=== PATIENT | female | born 1930 | race Caucasian/White ===

== ENCOUNTER 2017-01-31 11:08 | Inpatient (IN) | payer MEDICARE ==
[~2017-01-31] VITALS: Ht 165.1 cm; Wt 60.0 kg
[~2017-01-31 11:08] MED LIST: ANTIVERT25 MG PO; ASPIR-LOW81 MG PO; B121000 MCG/1 IM; CALCIUM 500 + D1 TAB PO; CALCIUM600 MG PO; CIPRO500 MG PO; CLARITIN10 MG PO; COLACE100 MG PO; DAILY VITAMIN1 TAB PO; DARVOCET N 1001 TAB PO; Ecotrin325 MG PO; FISH OIL 10001000 MG PO; LOPRESSOR25 MG PO; LOPRESSOR50 M1 PO; LOPRESSOR50 MG PO; MAREPA1200 MG PO; METOPROLOL SR50 MG PO; MOBIC7.5 MG PO; MOTRIN800 MG PO; MULTI VITAMINS1 TAB PO; MYLICON, MYLANT80 MG PO; NORVASC5 MG PO; PREDNICOT20 MG PO; PRILOSEC20 MG PO; SIMVASTATIN10 MG PO; VITAMIN B PO; VITAMIN D400 I1 PO; XANAX0.25 MG PO; ZOFRAN ODT4 MG SL; [UNRECOGNIZED DRUG - CODE] PO; [UNRECOGNIZED DRUG - CODE] PO; [UNRECOGNIZED DRUG - CODE] PO
[2017-01-31 11:28] VITALS: BP 130/55
[2017-01-31 12:09] LABS: BASO % 0.1 % (0.0-1.0); EOS % 0.4 % (1.0-4.0); HEMATOCRIT 42.2 % (37.0-47.0); HEMOGLOBIN 14.2 g/dl (12.0-16.0); LYMPH # 0.7 10*3/uL (1.3-4.4); LYMPH % 6.9 % (27.0-41.0); MEAN CELL VOLUME 94.4 fl (81.0-99.0); MEAN CORPUSCULAR HGB 31.8 pg (27.0-31.0); MEAN CORPUSCULAR HGB CONC 33.6 g/dl (33.0-37.0); MEAN PLATELET VOLUME 9.5 fl (9.6-12.3); MONO # 0.6 10*3/uL (0.1-1.0); MONO % 5.3 % (3.0-9.0); NEUT # 9.1 10*3/uL (2.3-7.9); PLATELET COUNT AUTOMATED 187 10*3/uL (130-400); RED BLOOD COUNT 4.47 10*6/uL (4.10-5.10); RED CELL DISTRI WIDTH 13.3 % (0-14.5); WHITE BLOOD COUNT 10.4 10*3/uL (4.8-10.8)
[2017-01-31 12:30] LABS: ALBUMIN 3.7 gm/dl (3.1-4.5); ALKALINE PHOSPHATASE 68 U/L (45-117); BUN 22 mg/dl (7-24); CHLORIDE 108 mmol/L (98-107); CREATININE 0.69 mg/dL (0.55-1.02); LIPASE 77 U/L (73-393); SGOT/AST 13 IU/L (3-35); SGPT/ALT 25 U/L (12-78); SODIUM 140 mmol/L (136-145); TOTAL PROTEIN 6.9 gm/dL (6.4-8.2)
[2017-01-31 12:31] LABS: TROPONIN I < 0.015 ng/ml (<0.045)
[2017-01-31 12:50] LABS: BILIRUBIN NEGATIVE (NEGATIVE); BLOOD NEGATIVE (NEGATIVE); CLARITY SL CLOUDY (CLEAR); COLOR YELLOW (YELLOW); GLUCOSE NEGATIVE (NEGATIVE); KETONE 2+ (NEGATIVE); LEUKO ESTERASE NEGATIVE (NEGATIVE); NITRITE NEGATIVE (NEGATIVE); SPECIFIC GRAVITY 1.025 (1.005-1.030)
[2017-01-31 13:00] LABS: BACTERIA 1+; WBC 0-2 wbc/hpf (0-5)
[2017-01-31 13:05] VITALS: BP 120/53
[2017-01-31 15:30] VITALS: BP 127/49
[2017-01-31 20:00] VITALS: BP 122/49
[2017-02-01] VITALS: BP 143/57
[2017-02-01 04:00] VITALS: BP 120/50
[2017-02-01 07:26] LABS: BUN 17 mg/dl (7-24); CHLORIDE 110 mmol/L (98-107); CREATININE 0.56 mg/dL (0.55-1.02); POTASSIUM 3.4 mmol/L (3.5-5.1); SODIUM 143 mmol/L (136-145)
[2017-02-01 07:30] LABS: BASO % 0.2 % (0.0-1.0); EOS % 0.8 % (1.0-4.0); LYMPH # 1.4 10*3/uL (1.3-4.4); LYMPH % 26.7 % (27.0-41.0); MEAN CORPUSCULAR HGB 31.8 pg (27.0-31.0); MEAN CORPUSCULAR HGB CONC 32.6 g/dl (33.0-37.0); MEAN PLATELET VOLUME 9.8 fl (9.6-12.3); MONO # 0.4 10*3/uL (0.1-1.0); MONO % 8.3 % (3.0-9.0); NEUT # 3.2 10*3/uL (2.3-7.9); NEUT % 63.6 % (47.0-73.0); PLATELET COUNT AUTOMATED 165 10*3/uL (130-400); RED BLOOD COUNT 3.65 10*6/uL (4.10-5.10); RED CELL DISTRI WIDTH 13.5 % (0-14.5); WHITE BLOOD COUNT 5.1 10*3/uL (4.8-10.8)
[2017-02-01 07:35] LABS: HEMATOCRIT 35.6 % (37.0-47.0); HEMOGLOBIN 11.6 g/dl (12.0-16.0); MEAN CELL VOLUME 97.5 fl (81.0-99.0)
[2017-02-01 08:00] VITALS: BP 110/50
[2017-02-01 12:00] VITALS: BP 124/52
[2017-02-01 16:00] VITALS: BP 127/55
[2017-02-01 20:00] VITALS: BP 128/61
[2017-02-02] VITALS: BP 149/66
[2017-02-02 06:01] LABS: BASO % 0.2 % (0.0-1.0); EOS # 0.1 10*3/uL (0.0-0.4); EOS % 1.4 % (1.0-4.0); HEMATOCRIT 33.9 % (37.0-47.0); HEMOGLOBIN 11.2 g/dl (12.0-16.0); LYMPH # 1.3 10*3/uL (1.3-4.4); LYMPH % 31.1 % (27.0-41.0); MEAN CELL VOLUME 95.8 fl (81.0-99.0); MEAN CORPUSCULAR HGB 31.6 pg (27.0-31.0); MEAN PLATELET VOLUME 9.5 fl (9.6-12.3); MONO # 0.3 10*3/uL (0.1-1.0); MONO % 6.8 % (3.0-9.0); NEUT # 2.6 10*3/uL (2.3-7.9); NEUT % 60.3 % (47.0-73.0); PLATELET COUNT AUTOMATED 161 10*3/uL (130-400); RED BLOOD COUNT 3.54 10*6/uL (4.10-5.10); RED CELL DISTRI WIDTH 13.2 % (0-14.5); WHITE BLOOD COUNT 4.3 10*3/uL (4.8-10.8)
[2017-02-02 06:22] LABS: BUN 11 mg/dl (7-24); CHLORIDE 110 mmol/L (98-107); CREATININE 0.46 mg/dL (0.55-1.02); POTASSIUM 3.4 mmol/L (3.5-5.1); SODIUM 145 mmol/L (136-145)
[2017-02-02 08:00] VITALS: BP 134/59
[2017-02-02 12:00] VITALS: BP 134/62
[2017-02-02 16:00] VITALS: BP 116/55
[2017-02-02 20:00] VITALS: BP 142/53
[2017-02-03] VITALS: BP 126/64
[2017-02-03 06:41] LABS: BUN 5 mg/dl (7-24); CHLORIDE 112 mmol/L (98-107); CREATININE 0.49 mg/dL (0.55-1.02); PHOSPHOROUS 2.7 mg/dL (2.5-4.9); POTASSIUM 3.2 mmol/L (3.5-5.1); SODIUM 145 mmol/L (136-145)
[2017-02-03 08:00] VITALS: BP 143/53
[2017-02-03 12:00] VITALS: BP 127/47
[2017-02-03 16:00] VITALS: BP 140/55
[2017-02-03 20:00] VITALS: BP 132/52
[2017-02-04] VITALS: BP 149/64
[2017-02-04 06:30] LABS: BASO % 0.3 % (0.0-1.0); EOS # 0.2 10*3/uL (0.0-0.4); EOS % 4.6 % (1.0-4.0); HEMATOCRIT 35.4 % (37.0-47.0); HEMOGLOBIN 11.6 g/dl (12.0-16.0); LYMPH # 1.5 10*3/uL (1.3-4.4); LYMPH % 41.5 % (27.0-41.0); MEAN CELL VOLUME 95.4 fl (81.0-99.0); MEAN CORPUSCULAR HGB 31.3 pg (27.0-31.0); MEAN CORPUSCULAR HGB CONC 32.8 g/dl (33.0-37.0); MEAN PLATELET VOLUME 9.5 fl (9.6-12.3); MONO # 0.3 10*3/uL (0.1-1.0); MONO % 8.7 % (3.0-9.0); NEUT # 1.6 10*3/uL (2.3-7.9); NEUT % 44.6 % (47.0-73.0); PLATELET COUNT AUTOMATED 179 10*3/uL (130-400); RED BLOOD COUNT 3.71 10*6/uL (4.10-5.10); RED CELL DISTRI WIDTH 13.2 % (0-14.5); WHITE BLOOD COUNT 3.7 10*3/uL (4.8-10.8)
[2017-02-04 06:46] LABS: BUN 6 mg/dl (7-24); CHLORIDE 112 mmol/L (98-107); CREATININE 0.58 mg/dL (0.55-1.02); POTASSIUM 3.5 mmol/L (3.5-5.1); SODIUM 145 mmol/L (136-145)
[2017-02-04 08:00] VITALS: BP 155/65
[2017-02-04 12:00] VITALS: BP 142/62
[2017-02-04 16:00] VITALS: BP 120/51
[2017-02-04] MEDS ORDERED: VITAMIN D31000 UNI1 PO (16:59)
== END 2017-02-04 18:31 | disposition home or self-care (01) | DRG 390 ==
LOC: ED 11:08 → 4E 14:40 → EDHOLD 14:40 → 4E 14:54
PROVIDERS: Student in an Organized Health Care Education/Training Program; ADMIT Internal Medicine
DX: K56.600 Partial intestinal obstruction, unspecified as to cause (principal); E87.8 Other disorders of electrolyte and fluid balance, not elsewhere classified; D64.9 Anemia, unspecified; R11.14 Bilious vomiting; K21.9 Gastro-esophageal reflux disease without esophagitis; K56.7 Ileus, unspecified; R73.9 Hyperglycemia, unspecified; K29.70 Gastritis, unspecified, without bleeding; I10 Essential (primary) hypertension; E78.5 Hyperlipidemia, unspecified; E87.6 Hypokalemia; D72.810 Lymphocytopenia; R82.71 Bacteriuria; Z60.2 Problems related to living alone; M19.90 Unspecified osteoarthritis, unspecified site; I25.10 Atherosclerotic heart disease of native coronary artery without angina pectoris; Z88.2 Allergy status to sulfonamides; Z88.8 Allergy status to other drugs, medicaments and biological substances; Z79.899 Other long term (current) drug therapy; Z79.82 Long term (current) use of aspirin; Z87.440 Personal history of urinary (tract) infections; Z82.3 Family history of stroke; Z98.61 Coronary angioplasty status; Z90.710 Acquired absence of both cervix and uterus; Z90.49 Acquired absence of other specified parts of digestive tract; Z90.12 Acquired absence of left breast and nipple; Z98.42 Cataract extraction status, left eye; Z98.41 Cataract extraction status, right eye; Z87.891 Personal history of nicotine dependence; Z80.8 Family history of malignant neoplasm of other organs or systems; Z84.89 Family history of other specified conditions

== ENCOUNTER → 2017-04-18 | Outpatient (CLI) | payer MEDICARE ==
[~2017-04-18] MED LIST changes: +VITAMIN D31000 UNI1 PO
== END | disposition home or self-care (01) ==
LOC: MAMMO 04-11 13:46
DX: R92.8 Other abnormal and inconclusive findings on diagnostic imaging of breast (principal)